=== PATIENT | female | born 1935 | race Caucasian/White ===

== ENCOUNTER → 2017-03-12 | Outpatient (CLI) | payer MEDICARE, OTHER ==
[~2017-03-12] MED LIST: ASPERCREME90 GM/TUBE TOP; ASPIRIN LO-DOSE81 MG PO; CETIRIZINE HCL5 MG PO; COLACE100 MG PO; COREG6.25 MG PO; DITROPAN XL5 MG PO; DULCOLAX10 MG R; FLEET133 ML R; I-VITE TABLET1 EACH PO; IMDUR30 MG PO; IPRAT-ALBUT 0.5-3 ML INH; LOTENSIN10 MG PO; LYRICA 50MG CAP50 MG PO; LYRICA 75MG CAP75 MG PO; MILK OF MA400 MG/5 M PO; MIRALAX17 GM PO; MOBIC15 MG PO; MYCOSTATIN(NYST15 GM TOP; NASONEX17 GM NOSE; NITROSTAT0.4 MG SL; OYSTER SHELL C500 MG PO; PRILOSEC OTC20 MG PO; PROAIR HFA8.5 GM INH; SENOKOT S (S1 TABLET PO; SYMBICORT 16010.2 GM INH; TEARGEN1 BOT OPHTH; TYLENOL EXTRA500 MG PO; ULTRAM50 MG PO; VITAMIN D-32000 UNI1 PO; ZOCOR20 MG PO
--- NOTE | ~2017-03-12 | ECHO ---
Transthoracic Echocardiography Report (TTE) Demographics Patient Name JOSELYN DONOVAN Date of Study 03/12/2017 Patient Number [id number] Visit Number [id number] Date of 1935 Room Number Accession Number [id number] Gender Female Age 81 year(s) Referring Wilbert Acevedo MD [employer] Xavier Pickett Physician ODINCS, RVT Physician Interpreting Lucila Gallegos [employer] Technician Physician Supervising Ordering Physician Wilbert Acevedo MD, MD/MLP Nurse Stress [employer] Chief Conclusions Summary Technically difficult exam. Normal LV/RV size and systolic function. The estimated left ventricular ejection fraction is 55-60%. Diastolic assessment reveals Grade I diastolic dysfunction. The left atrium is moderately dilated. There is mild aortic regurgitation by color Doppler. The aortic valve is mildly sclerotic. Procedure Type of Study TTE procedure:2D Echocardiogram. Procedure Date Date: 03/12/2017 Start: 11:16 AM Study Location: Echo Lab Technical Quality: Limited visualization due to body habitus. Indications:Aortic Insufficiency. Appropriate Use Criteria: 9 Patient Status: Routine HR: 65 bpm BP: 175/82 mmHg Allergies - Penicillin. M-Mode/2D Measurements LV Diastolic Dimension: 4.45 cm LV Systolic Dimension: 2.49 cm LV Septum Diastolic: 0.86 cm LV PW Diastolic: 0.92 cm AO Root Dimension: 2.9 cm Cardiac Output: 3.28 l/min AV Cusp Separation: 1.7 cm RV Diastolic Dimension: 2.77 cm LA volume: 74 ml LVOT: 1.9 cm RV Base: 3.67 cm LVOT VTI: 17.8 cm RV Mid: 2.85 cm LV Stroke volume: 50.44 ml TAPSE: 1.99 cm TDI-S': 15.4 cm/s Doppler Measurements AV Peak Velocity: 1.42 m/s MV Peak E-Wave: 0.47 m/s AV Peak Gradient: 8.07 mmHg MV Peak A-Wave: 0.97 m/s AV Mean Gradient: 5 mmHg MV E/A Ratio: 0.49 LVOT Peak Velocity: 0.97 m/s MV P1/2t: 84 msec AV P1/2t: 394 msec TR Gradient:24.4 mmHg PV Peak Velocity: 0.73 m/s Estimated RAP:5 mmHg PV Peak Gradient: 2.16 mmHg Estimated RVSP: 29 mmHg Estimated PASP: 29.4 mmHg E' Septal Velocity: 0.05 m/s A' Septal Velocity: 0.07 m/s E' Lateral Velocity: 0.04 m/s A' Lateral Velocity: 0.07 m/s Findings Left Ventricle Diastolic assessment reveals Grade I diastolic dysfunction. The left ventricle is normal in size . Right Ventricle Normal right ventricle structure and function. Left Atrium The left atrium is moderately dilated. Right Atrium The right atrium is mildly dilated. IVC measures 1.62 cm with inspiratory collapse. Mitral Valve Mild mitral regurgitation by color Doppler. Aortic Valve There is mild aortic regurgitation by color Doppler. The aortic valve is mildly sclerotic. Tricuspid Valve The tricuspid valve is not well visualized. Pulmonic Valve Pulmonic valve is not well seen. Pericardial Effusion Epicardial fat pad noted. Miscellaneous Visualized portions of the aortic root and ascending aorta appear normal in size. Pleural Effusion No evidence of pleural effusion. Contractility Score LV regional wall motion:(0-Non visualized 1-Normal 2-Hypokinesis 3-Akinesis 4-Dyskinesis 5-Aneurysm) Signature dtt: AHSAN OZUNA dtd: 03/12/17 1116 Physician Self Edit
== END | disposition disaster alternative care site (69) ==
LOC: GCAR 11:00
DX: I25.10 Atherosclerotic heart disease of native coronary artery without angina pectoris (principal); I35.1 Nonrheumatic aortic (valve) insufficiency; I10 Essential (primary) hypertension; I35.8 Other nonrheumatic aortic valve disorders; I51.89 Other ill-defined heart diseases

== ENCOUNTER → 2017-04-24 | Outpatient (CLI) | payer MEDICARE, OTHER | END | disposition disaster alternative care site (69) | LOC: GRAD 11:14 | DX: R10.9 Unspecified abdominal pain (principal); K57.32 Diverticulitis of large intestine without perforation or abscess without bleeding ==